=== PATIENT | female | born 1935 | race Caucasian/White ===

== ENCOUNTER 2018-01-14 06:20 | Inpatient (IN) | payer OTHER ==
[~2018-01-14] VITALS: Ht 160 cm; Wt 83.0 kg
[2018-01-14 06:25] VITALS: BP 150/83
[2018-01-14] MEDS ORDERED: METFORMIN HCL500 MG PO (06:30)
[2018-01-14] MEDS ORDERED: LISINOPRIL10 MG PO (06:31)
[2018-01-14] MEDS ORDERED: GLUCOTROL5 MG PO (06:31)
[2018-01-14] MEDS ORDERED: MOBIC7.5 MG PO (06:32)
[2018-01-14] MEDS ORDERED: LIORESAL 10 MG10 MG PO (06:32)
[2018-01-14 06:57] LABS: ABSOLUTE BASOPHILS 0.1 thou/uL (0.0-0.2); ABSOLUTE EOSINOPHILS 0.1 thou/uL (0.0-0.7); ABSOLUTE LYMPHOCYTES 2.6 thou/uL (0.8-5.3); ABSOLUTE MONOCYTES 0.6 thou/uL (0.0-1.2); ABSOLUTE NEUTROPHILS 7.2 thou/uL (1.6-8.1); BASOPHILS 0.7 %; EOSINOPHILS 1.3 %; HEMATOCRIT 36.4 % (37.0-47.0); HEMOGLOBIN 11.9 gm/dL (12.0-15.0); LYMPHOCYTES 24.4 %; MCH 30.2 pg (26.0-34.0); MCHC 32.7 g/dL (28.0-37.0); MCV 92.3 fL (80.0-100.0); MONOCYTES 6.1 %; MPV 6.9 fl. (7.2-11.1); NUCLEATED RBCS 0 /100WBC; PLATELET COUNT* 478 thou/uL (150-400); POLYS 67.5 %; RBC 3.95 mil/uL (4.20-5.00); RDW-CV 12.5 % (10.5-14.5); WBC 10.7 thou/uL (4.0-11.0)
[2018-01-14 07:05] LABS: CALCIUM 8.8 mg/dL (8.5-10.1); POTASSIUM 4.3 mmol/L (3.5-5.1)
[2018-01-14 07:07] LABS: PROTIME 10.1 Seconds (9.20-11.50)
[2018-01-14 07:10] LABS: ALBUMIN 3.2 g/dL (3.4-5.0); TOTAL BILIRUBIN 0.2 mg/dL (<0.1-1.0); TOTAL PROTEIN 6.6 g/dL (6.4-8.2)
[2018-01-14 08:23] LABS: URINE BILIRUBIN NEGATIVE (Negative); URINE BLOOD NEGATIVE (Negative); URINE CLARITY CLEAR; URINE COLOR YELLOW; URINE GLUCOSE-RANDOM TRACE (Negative); URINE KETONES 1+ (Negative); URINE LEUKOCYTES-REFLEX 1+ (Negative); URINE NITRITE-REFLEX NEGATIVE (Negative); URINE PROTEIN NEGATIVE (Negative); URINE UROBILINOGEN 0.2 E.U./dl (0.2-1.0)
[2018-01-14 08:27] LABS: BACTERIA-REFLEX 1-9 Few /HPF (None Seen); CASTS None Seen /LPF (None Seen); CRYSTALS None Seen /LPF (None Seen); MUCUS 0-3 Light strn/LPF (None Seen); SQUAMOUS 0-3 Few /LPF (0-3); URINE RBC 0-2 Rare /HPF (0-2)
[2018-01-14 13:10] VITALS: BP 187/68
[2018-01-14 13:36] VITALS: BP 186/84
[2018-01-15 01:15] VITALS: BP 141/84
[2018-01-15 04:16] LABS: HEMATOCRIT 34.8 % (37.0-47.0); HEMOGLOBIN 11.7 gm/dL (12.0-15.0); MCH 30.9 pg (26.0-34.0); MCHC 33.5 g/dL (28.0-37.0); MCV 92.2 fL (80.0-100.0); MPV 7.1 fl. (7.2-11.1); RBC 3.77 mil/uL (4.20-5.00); WBC 7.8 thou/uL (4.0-11.0)
[2018-01-15 04:21] LABS: CALCIUM 8.4 mg/dL (8.5-10.1); CREATININE 0.9 mg/dL (0.6-1.3); MAGNESIUM 1.4 mg/dL (1.8-2.4); POTASSIUM 4.3 mmol/L (3.5-5.1)
[2018-01-15 08:45] VITALS: BP 150/83
[2018-01-15 16:00] VITALS: BP 162/72
[2018-01-15 22:00] VITALS: BP 156/89
[2018-01-16 04:26] LABS: HEMATOCRIT 34.6 % (37.0-47.0); HEMOGLOBIN 11.5 gm/dL (12.0-15.0); MCH 30.4 pg (26.0-34.0); MCHC 33.3 g/dL (28.0-37.0); MCV 91.3 fL (80.0-100.0); MPV 7.4 fl. (7.2-11.1); RBC 3.79 mil/uL (4.20-5.00); WBC 9.8 thou/uL (4.0-11.0)
[2018-01-16 04:38] LABS: CALCIUM 9.1 mg/dL (8.5-10.1); CREATININE 0.8 mg/dL (0.6-1.3); MAGNESIUM 1.8 mg/dL (1.8-2.4); POTASSIUM 5.5 mmol/L (3.5-5.1)
[2018-01-16 08:20] VITALS: BP 159/74
[2018-01-16 16:00] VITALS: BP 188/70
[2018-01-16 18:26] VITALS: BP 185/79
[2018-01-16 21:26] VITALS: BP 160/67
[2018-01-17 04:13] LABS: CREATININE 0.8 mg/dL (0.6-1.3); MAGNESIUM 1.7 mg/dL (1.8-2.4)
[2018-01-17 04:26] LABS: POTASSIUM 6.2 mmol/L (3.5-5.1)
[2018-01-17 08:10] VITALS: BP 173/57
[2018-01-17] MEDS ORDERED: LIDOPATCH1 EACH TOP (10:43)
[2018-01-17] MEDS ORDERED: CEFUROXIME500 MG PO (10:43)
[2018-01-17] MEDS ORDERED: MEDROLDOSEPACK PO (10:45)
[2018-01-17 11:57] VITALS: BP 173/57
== END 2018-01-17 12:43 | disposition home or self-care (01) | DRG 372 ==
LOC: M.ERS 06:20 → M.3W 09:03 → M.TBA-ER 09:03 → M.3W 13:29
PROVIDERS: Emergency Medicine; Internal Medicine; ADMIT Family Medicine
DX: A04.9 Bacterial intestinal infection, unspecified (principal); N39.0 Urinary tract infection, site not specified; R65.10 Systemic inflammatory response syndrome (SIRS) of non-infectious origin without acute organ dysfunction; E87.1 Hypo-osmolality and hyponatremia; M46.1 Sacroiliitis, not elsewhere classified; E11.65 Type 2 diabetes mellitus with hyperglycemia; B96.1 Klebsiella pneumoniae [K. pneumoniae] as the cause of diseases classified elsewhere; M25.551 Pain in right hip; E66.9 Obesity, unspecified; M19.90 Unspecified osteoarthritis, unspecified site; I10 Essential (primary) hypertension; Z79.84 Long term (current) use of oral hypoglycemic drugs; Z68.32 Body mass index [BMI] 32.0-32.9, adult; Z79.899 Other long term (current) drug therapy; Z88.6 Allergy status to analgesic agent

== ENCOUNTER 2020-11-11 14:14 | Emergency (ER) | payer OTHER ==
[~2020-11-11] VITALS: Ht 157.5 cm; Wt 86.2 kg
[~2020-11-11 14:14] MED LIST: CEFUROXIME500 MG PO; GLUCOTROL5 MG PO; LIDOPATCH1 EACH TOP; LIORESAL 10 MG10 MG PO; LISINOPRIL10 MG PO; MEDROLDOSEPACK PO; METFORMIN HCL500 MG PO; MOBIC7.5 MG PO
[2020-11-11] MEDS ORDERED: LANTUS SUBQ (14:32)
[2020-11-11] MEDS ORDERED: NYSTATIN 100,0015 G1 TOP (14:57)
[2020-11-11] MEDS ORDERED: KEFLEX500 M1 PO (14:57)
[2020-11-11 15:03] VITALS: BP 177/68
== END 2020-11-11 15:05 | disposition home or self-care (01) ==
LOC: M.ERS 14:14
DX: B37.9 Candidiasis, unspecified (principal); E11.9 Type 2 diabetes mellitus without complications; I10 Essential (primary) hypertension; Z90.710 Acquired absence of both cervix and uterus; Z88.6 Allergy status to analgesic agent; Z79.4 Long term (current) use of insulin

== ENCOUNTER → 2020-11-23 | Outpatient (CLI) | payer OTHER ==
[~2020-11-23] MED LIST changes: +KEFLEX500 M1 PO; +LANTUS SUBQ; +NYSTATIN 100,0015 G1 TOP
--- NOTE | 2020-11-23 12:45 | 2DMMODE ---
[place] [address] 2 D/M-MODE ECHOCARDIOGRAM Name: NARDA ANGEL Room: [facility]#: [id number] Admission: 11/23/20 Attend Phys: Brie Buchanan MD Discharge: Date of : 31 Date of Service: 11/23/20 1245 Report #: [id number] THIS REPORT FOR: cc: Brie Buchanan MD, Lin W. MD Blick, David R. MD [facility] ~ APPROVED REPORT Study performed: 11/23/2020 09:56:03 EXAM: Comprehensive 2D, Doppler, and color-flow Echocardiogram Patient Location: Out-Patient BSA: 1.87 HR: 89 bpm BP: 130/70 mmHg Other Information Study Quality: Good Indications Murmur 2D Dimensions IVSd: 11.68 (7-11mm) LVOT Diam: 20.35 (18-24mm) LVDd: 41.73 mm PWd: 10.89 (7-11mm) Ascending Ao: 32.23 (22-36mm) LVDs: 25.14 (25-40mm) Aortic Root: 29.66 mm Volumes Left Atrial Volume (Systole) LA ESV Index: 13.30 mL/m2 Aortic Valve AoV Peak Jean.: 1.86 m/s AO Peak Gr.: 13.90 mmHg LVOT Max P.19 mmHg AO Mean Gr.: 7.41 mmHg LVOT Mean P.49 mmHg LVOT Max V: 0.89 m/s AO V2 VTI: 30.17 cm LVOT Mean V: 0.56 m/s ARLENE (VTI): 1.76 cm2 LVOT V1 VTI: 16.29 cm AI Mcduffie: 2.88 m/s2 AI PHT: 531.08 [place] [address] 2 D/M-MODE ECHOCARDIOGRAM Name: NARDA ANGEL Room: [facility]#: [id number] Admission: 11/23/20 Attend Phys: Brie Buchanan MD Discharge: Date of : 31 Date of Service: 11/23/20 1245 Report #: [id number] Mitral Valve E/A Ratio: 0.77 MV Decel. Time: 140.89 ms MV E Max Jean.: 0.58 m/s MV PHT: 40.86 ms MVA (PHT): 5.38 cm2 TDI E/Lateral E': 3.41 E/Medial E': 6.44 Medial E' Jean.: 0.09 m/s Lateral E' Jean.: 0.17 m/s Pulmonary Valve PV Peak Jean.: 1.17 m/s PV Peak Gr.: 5.45 mmHg Tricuspid Valve RAP Estimate: 5.00 mmHg TR Peak Gr.: 27.07 mmHg RVSP: 32.07 mmHg PA Pressure: 32.07 mmHg Left Ventricle The left ventricle is normal size. There is normal LV segmental wall motion. There is normal left ventricular wall thickness. Left ventricular systolic function is normal. The left ventricular ejection fraction is within the normal range. LVEF is 60-65%. This study is not technically sufficient to allow evaluation of the LV diastolic function. Right Ventricle The right ventricle is normal size. The right ventricular systolic function is normal. Atria The left atrium size is normal. The right atrium size is normal. Aortic Valve Aortic valve is calcified. Mild aortic regurgitation. Mild aortic stenosis. Mitral Valve The mitral valve is normal in structure. Mild mitral regurgitation. No evidence of mitral valve stenosis. Tricuspid Valve The tricuspid valve is normal in structure[place] [address] 2 D/M-MODE ECHOCARDIOGRAM Name: NARDA ANGEL Room: [facility]#: [id number] Admission: 11/23/20 Attend Phys: Brie Buchanan MD Discharge: Date of : 31 Date of Service: 11/23/20 1245 Report #: [id number] regurgitation. Pulmonic Valve The pulmonary valve is normal in structure. There is no pulmonic valvular regurgitation. Great Vessels The aortic root is normal in size. IVC is normal in size and collapses >50% with inspiration. Pericardium There is no pericardial effusion. <Conclusion> LVEF is 60-65%. Mild aortic stenosis. Mild aortic regurgitation. <ELECTRONICALLY SIGNED> By: Dale Boss MD, FACC 11/23/20 1245 1245 1245 Dale Boss MD, FAC /INF
== END ==
LOC: M.CRD 10:00
PROVIDERS: ATTEND Internal Medicine
DX: I08.3 Combined rheumatic disorders of mitral, aortic and tricuspid valves (principal)